=== PATIENT | male | born 1945 | race Caucasian/White ===

== ENCOUNTER 2018-04-02 18:30 | Inpatient (IN) | payer OTHER ==
[~2018-04-02] VITALS: Ht 172.7 cm; Wt 161.0 kg
[~2018-04-02 18:30] MED LIST: AMLODIPINE BESY10 MG PO; AQUAPHOR OINTM105 GM TP; AQUAPHOR W-NAT50 GM TP; ATORVASTATIN CA20 MG PO; BACTROBAN OINTM22 GM TP; BENICAR HCT 401 EAC1 PO; BUMETANIDE1 MG PO; BUMEX1 MG PO; CEFTIN500 MG PO; CLONIDINE HCL0.2 MG PO; CO Q-1010 MG PO; CO Q-1050 MG PO; COZAAR50 MG PO; DAILY VALUE1 EACH PO; DAILY VITE1 EAC1 PO; DIGITEK125 MC2 PO; DIGOXIN125 MCG PO; FISH OIL 1,0001 EAC7 PO; FISH OIL300 MG PO; FISH OIL500 MG PO; FUROSEMIDE40 MG PO; JANUVIA25 M1 PO; K-DUR20 MEQ PO; KLOR-CON M2020 MEQ PO; LASIX80 MG PO; LEVAQUIN750 MG PO; LIPITOR20 MG PO; LOPRESSOR50 MG PO; LOSARTAN POTASS50 MG PO; METOLAZONE5 MG PO; NOVOLOG MI100 UNIT/4 SQ; NOVOLOG MI100 UNIT/M PO; NOVOLOG MI100 UNIT/M SC; OSTEO BI-FLEX1 EAC1 PO; OSTEO BI-FLEX1 EAC2 PO; PRESERVISIO1 CAPSULE PO; PRESERVISION T1 EACH PO; SUDOGEST PE10 MG PO; TOUJEO SOL300 UNIT/1 SC; TRAMADOL HCL50 MG PO; TYLENOL EXTRA500 MG PO; XARELTO15 MG PO; XARELTO20 MG PO
[2018-04-02 19:30] LABS: HEMATOCRIT 41.6 % (38.0-50.0); HEMOGLOBIN 14.1 G/DL (12.5-16.6); MCHC 33.9 G/DL (30.0-36.0); MCV 88.5 FL (86-99); PLATELET COUNT 81 K/uL (156-360); RBC DIS.WIDTH-SD 42.7 % (39-53); WHITE BLOOD COUNT 15.8 K/uL (4.1-10.2)
[2018-04-02 19:35] LABS: CARBON DIOXIDE (BICARBONATE) 29.9 MEQ/L (20-31)
[2018-04-02 19:45] LABS: ALBUMIN 3.6 g/dL (3.2-4.8); CHLORIDE 93 mEq/L (99-109)
[2018-04-02 19:46] LABS: POTASSIUM 5.3 mEq/L (3.7-5.4); SODIUM 131 mEq/L (136-147)
[2018-04-02 19:48] LABS: TOTAL PROTEIN 8.1 g/dL (6.4-8.3)
[2018-04-02 19:50] LABS: TOTAL BILIRUBIN 1.5 mg/dL (0.0-1.0)
[2018-04-02 19:51] LABS: ALKALINE PHOSPHATASE 81 IU/L (3-129); CREATININE 2.4 mg/dL (0.6-1.3); GFR ESTIMATE (CALCULATED) 29 mL/min/ (58.99-99999)
[2018-04-02 19:53] LABS: AST (GOT) 132 IU/L (2-34); UREA NITROGEN (BUN) 43 mg/dL (9-23)
[2018-04-02 19:54] LABS: ALT (GPT) 66 IU/L (3-49)
[2018-04-02 19:57] LABS: GLUCOSE 546 mg/dL (70-99)
[2018-04-02 20:38] LABS: APPEARANCE CLEAR ((CLEAR)); BILIRUBIN NEGATIVE; BLOOD MODERATE; COLOR YELLOW ((YELLOW)); GLUCOSE (STRIP) >=500; KETONES NEGATIVE; LEUKOCYTES NEGATIVE; NITRITE NEGATIVE; PROTEIN (STRIP) 30; SPECIFIC GRAVITY 1.014 (1.000-1.030); UROBILINOGEN 0.2 MG/DL (0.2-1.0)
[2018-04-02 20:44] LABS: BACTERIA RARE /HPF; EPITHELIAL CELLS RARE /HPF; HYALINE CASTS 20-30 /LPF; MUCUS TRACE /LPF; RED BLOOD CELLS 0-5 /HPF (0-5); UCUL ADDED? NO; WHITE BLOOD CELLS 0-5 /HPF (0-5)
[2018-04-02] MEDS ORDERED: POTASSIUM CHLO20 ME2 PO ×2 (22:33→22:34)
[2018-04-02] MEDS ORDERED: ALDACTONE25 MG PO (22:35)
[2018-04-02] MEDS ORDERED: BUMEX2 MG PO (22:35)
[2018-04-02] MEDS ORDERED: TRULICITY1.5 MG/0.5 SC (22:35)
[2018-04-03] VITALS (7 sets, daily range): BP systolic 103–143; BP diastolic 47–68
[2018-04-03 05:46] LABS: CHLORIDE 99 MEQ/L (99-109); GLUCOSE 392 mg/dL (70-99); POTASSIUM 4.4 MEQ/L (3.7-5.4); SODIUM 135 MEQ/L (136-147); UREA NITROGEN (BUN) 37 mg/dL (9-23)
[2018-04-03 05:47] LABS: CREATININE 1.8 MG/DL (0.6-1.3); GFR ESTIMATE (CALCULATED) 40 mL/min/ (58.99-99999)
[2018-04-03 05:52] LABS: BASOPHIL (%) 0.3 % (0-1); EOSINOPHIL (%) 0.1 % (0-5); HEMATOCRIT 36.3 % (38.0-50.0); IMMATURE GRANULOCYTE (%) 0.8 % (0.0-0.7); LYMPHOCYTE (%) 3.5 % (15-42); LYMPHOCYTE COUNT 0.4 K/uL (1.0-2.8); MCH 29.8 PG (29.0-34.0); MCHC 33.3 G/DL (30.0-36.0); MCV 89.4 FL (86-99); MONOCYTE (%) 3.9 % (3-12); MONOCYTE COUNT 0.5 K/uL (0-0.8); NEUTROPHIL (%) 91.4 % (45-76); NEUTROPHIL COUNT 11.6 K/uL (1.8-6.4); PLATELET COUNT 65 K/uL (156-360); RBC DIS.WIDTH-CV 13.2 % (11.8-14.6); RBC DIS.WIDTH-SD 43.7 % (39-53); RED BLOOD COUNT 4.06 M/uL (4.00-5.50); WHITE BLOOD COUNT 12.7 K/uL (4.1-10.2)
[2018-04-03 05:54] LABS: HEMOGLOBIN 12.1 G/DL (12.5-16.6)
[2018-04-04 03:16] VITALS: BP 111/51
[2018-04-04 05:14] LABS: BASOPHIL (%) 0.4 % (0-1); BASOPHIL COUNT 0.1 K/uL (0-0.1); EOSINOPHIL COUNT 0.3 K/uL (0-0.3); HEMATOCRIT 35.4 % (38.0-50.0); HEMOGLOBIN 11.7 G/DL (12.5-16.6); IMMATURE GRANULOCYTE (%) 1.9 % (0.0-0.7); LYMPHOCYTE (%) 5.8 % (15-42); LYMPHOCYTE COUNT 0.7 K/uL (1.0-2.8); MCH 29.6 PG (29.0-34.0); MCHC 33.1 G/DL (30.0-36.0); MCV 89.6 FL (86-99); MONOCYTE (%) 4.5 % (3-12); MONOCYTE COUNT 0.6 K/uL (0-0.8); NEUTROPHIL (%) 85.4 % (45-76); NEUTROPHIL COUNT 10.8 K/uL (1.8-6.4); PLATELET COUNT 58 K/uL (156-360); RBC DIS.WIDTH-CV 13.2 % (11.8-14.6); RBC DIS.WIDTH-SD 43.4 % (39-53); RED BLOOD COUNT 3.95 M/uL (4.00-5.50); WHITE BLOOD COUNT 12.7 K/uL (4.1-10.2)
[2018-04-04 05:56] LABS: ALBUMIN 2.7 G/DL (3.2-4.8); ALKALINE PHOSPHATASE 60 IU/L (3-129); ALT (GPT) 51 IU/L (3-49); AST (GOT) 86 IU/L (2-34); CHLORIDE 99 MEQ/L (99-109); CREATININE 1.5 MG/DL (0.6-1.3); GFR ESTIMATE (CALCULATED) 49 mL/min/ (58.99-99999); GLUCOSE 194 mg/dL (70-99); HDL CHOLESTEROL 13 MG/DL (Desirable>=40); LDL CHOLESTEROL 37 mg/dL (Desirable<100); LIPASE 38 U/L (1.0-51.0); NON-HDL CHOLESTEROL 80 mg/dL (Desirable<160); SODIUM 132 MEQ/L (136-147); TOTAL BILIRUBIN 0.9 MG/DL (0.0-1.0); TOTAL CHOLESTEROL 93 mg/dL (Desirable<200); TOTAL PROTEIN 6.3 G/DL (6.4-8.3); TRIGLYCERIDES 217 MG/DL (Normal: <150); UREA NITROGEN (BUN) 35 mg/dL (9-23)
[2018-04-04 07:50] LABS: INTACT PARATHYROID HORMONE 111 pg/mL (10-69)
[2018-04-04 08:09] VITALS: BP 124/59
[2018-04-04 11:21] VITALS: BP 116/58
[2018-04-04 16:05] VITALS: BP 141/67
[2018-04-04 19:09] VITALS: BP 118/56
[2018-04-05 00:25] VITALS: BP 117/58
[2018-04-05 03:45] VITALS: BP 114/56
[2018-04-05 06:06] LABS: CHLORIDE 101 MEQ/L (99-109); CREATININE 1.3 MG/DL (0.6-1.3); GFR ESTIMATE (CALCULATED) 58 mL/min/ (58.99-99999); GLUCOSE 152 mg/dL (70-99); SODIUM 134 MEQ/L (136-147); UREA NITROGEN (BUN) 32 mg/dL (9-23)
[2018-04-05 07:35] VITALS: BP 121/58
[2018-04-05 11:55] VITALS: BP 125/56
[2018-04-05 16:32] VITALS: BP 126/58
[2018-04-05 20:22] VITALS: BP 107/55
[2018-04-06 01:39] VITALS: BP 110/56
[2018-04-06 06:14] LABS: BASOPHIL (%) 0.4 % (0-1); BASOPHIL COUNT 0.1 K/uL (0-0.1); EOSINOPHIL (%) 2.3 % (0-5); EOSINOPHIL COUNT 0.4 K/uL (0-0.3); HEMATOCRIT 36.1 % (38.0-50.0); HEMOGLOBIN 11.7 G/DL (12.5-16.6); IMMATURE GRANULOCYTE (%) 4.8 % (0.0-0.7); LYMPHOCYTE (%) 8.6 % (15-42); LYMPHOCYTE COUNT 1.4 K/uL (1.0-2.8); MCH 29.3 PG (29.0-34.0); MCHC 32.4 G/DL (30.0-36.0); MCV 90.3 FL (86-99); MONOCYTE (%) 4.5 % (3-12); MONOCYTE COUNT 0.7 K/uL (0-0.8); NEUTROPHIL (%) 79.4 % (45-76); NEUTROPHIL COUNT 12.6 K/uL (1.8-6.4); RBC DIS.WIDTH-CV 13.1 % (11.8-14.6); RBC DIS.WIDTH-SD 43.5 % (39-53); WHITE BLOOD COUNT 15.9 K/uL (4.1-10.2)
[2018-04-06 06:18] VITALS: BP 106/57
[2018-04-06 06:19] LABS: PLATELET COUNT 110 K/uL (156-360)
[2018-04-06 06:36] LABS: CHLORIDE 100 MEQ/L (99-109); CREATININE 1.4 MG/DL (0.6-1.3); GFR ESTIMATE (CALCULATED) 53 mL/min/ (58.99-99999); POTASSIUM 4.2 MEQ/L (3.7-5.4); SODIUM 136 MEQ/L (136-147); UREA NITROGEN (BUN) 29 mg/dL (9-23)
[2018-04-06 06:43] LABS: GLUCOSE 113 mg/dL (70-99)
[2018-04-06 08:35] VITALS: BP 115/53
[2018-04-06 23:11] VITALS: BP 131/60
[2018-04-07 08:23] VITALS: BP 125/59
[2018-04-07 15:44] VITALS: BP 146/65
[2018-04-07 23:19] VITALS: BP 123/57
[2018-04-08 07:40] VITALS: BP 115/55
[2018-04-08 10:38] LABS: INTER. NORMALIZED RATIO 1.2
[2018-04-08 16:07] VITALS: BP 107/51
[2018-04-08 23:01] VITALS: BP 118/54
[2018-04-09 03:58] VITALS: BP 113/53
[2018-04-09 08:45] VITALS: BP 120/57
[2018-04-09 11:14] VITALS: BP 119/51
[2018-04-09 15:46] VITALS: BP 113/55
[2018-04-09 20:12] VITALS: BP 115/55
[2018-04-09 23:46] VITALS: BP 127/58
[2018-04-10 04:00] VITALS: BP 125/54
[2018-04-10 08:03] VITALS: BP 118/56
[2018-04-10 12:03] VITALS: BP 127/93
[2018-04-10 19:39] VITALS: BP 115/51
[2018-04-11 00:05] VITALS: BP 138/63
[2018-04-11 04:01] VITALS: BP 123/57
[2018-04-11 08:02] VITALS: BP 117/57
[2018-04-11 11:46] LABS: Flow Clinical Information NOT PROVIDED (()); Flow Number of Markers 22 (()); Flow Spec Viability 50 % (())
[2018-04-11 13:02] VITALS: BP 122/53
[2018-04-11] MEDS ORDERED: TAMSULOSIN HCL0.4 MG PO (13:41)
[2018-04-11] MEDS ORDERED: PANTOPRAZOLE SO40 MG PO (13:44)
[2018-04-11] MEDS ORDERED: JANUVIA25 M1 PO (13:44)
[2018-04-11 16:13] VITALS: BP 133/62
== END 2018-04-11 20:58 | DRG 629 ==
LOC: EME 18:30 → EDOF 22:33 → 4EAST 22:33 → 3EAST 22:33 → ENRESERV 23:05 → 4EAST 04-03 00:45 → ENRESERV 04-05 09:04 → 3EAST 04-05 13:21
PROVIDERS: Emergency Medicine; Family Medicine; Radiology Diagnostic Radiology
DX: E11.00 Type 2 diabetes mellitus with hyperosmolarity without nonketotic hyperglycemic-hyperosmolar coma (NKHHC) (principal); N17.9 Acute kidney failure, unspecified; R33.9 Retention of urine, unspecified; K26.9 Duodenal ulcer, unspecified as acute or chronic, without hemorrhage or perforation; R59.0 Localized enlarged lymph nodes; D69.3 Immune thrombocytopenic purpura; I48.92 Unspecified atrial flutter; I48.0 Paroxysmal atrial fibrillation; Z79.01 Long term (current) use of anticoagulants; I89.0 Lymphedema, not elsewhere classified; I12.9 Hypertensive chronic kidney disease with stage 1 through stage 4 chronic kidney disease, or unspecified chronic kidney disease; E11.22 Type 2 diabetes mellitus with diabetic chronic kidney disease; N18.2 Chronic kidney disease, stage 2 (mild); Z79.4 Long term (current) use of insulin; K44.9 Diaphragmatic hernia without obstruction or gangrene; K29.60 Other gastritis without bleeding; K20.9 Esophagitis, unspecified; R60.0 Localized edema; E11.51 Type 2 diabetes mellitus with diabetic peripheral angiopathy without gangrene; I73.9 Peripheral vascular disease, unspecified; I87.8 Other specified disorders of veins; E11.42 Type 2 diabetes mellitus with diabetic polyneuropathy; L89.892 Pressure ulcer of other site, stage 2; L89.890 Pressure ulcer of other site, unstageable; Z91.19 Patient's noncompliance with other medical treatment and regimen; E66.01 Morbid (severe) obesity due to excess calories; Z68.43 Body mass index [BMI] 50.0-59.9, adult; L89.619 Pressure ulcer of right heel, unspecified stage; K29.80 Duodenitis without bleeding; E78.5 Hyperlipidemia, unspecified; M17.0 Bilateral primary osteoarthritis of knee; E11.622 Type 2 diabetes mellitus with other skin ulcer; L97.919 Non-pressure chronic ulcer of unspecified part of right lower leg with unspecified severity; L97.929 Non-pressure chronic ulcer of unspecified part of left lower leg with unspecified severity; K59.00 Constipation, unspecified; Z99.3 Dependence on wheelchair; Z88.4 Allergy status to anesthetic agent
CPT/HCPCS: 29581 50; 71045; 74176; 76942; 80048; 80053; 80061; 81003; 82010; 82306; 82330; 82803; 82948; 83036; 83690; 83970; 85025; 85027; 85610; 85730; 88305; 88342 TC; 93925; 93970; 97530 GO; 97530 GP; 99212 25; 99281; 99285; A6242; A6260; J1815; J3480; J7030; J7120